=== PATIENT | female | born 1955 | race Hispanic/Latino ===

== ENCOUNTER 2016-11-26 22:50 | Emergency (ER) | payer OTHER ==
[~2016-11-26] VITALS: Ht 157.5 cm; Wt 89.5 kg
[~2016-11-26 22:50] MED LIST: METF500T4 PO; NAPR375T2 PO; SIMV10TA4 PO
[2016-11-26 22:53] VITALS: BP 137/88; PULSE 89; RESP 18; O2SAT 97
--- NOTE | 2016-11-26 23:07 | ED.REPORT ---
HPI-Hip/Pelvis Prob/Inj Date of Service Nov 26, 2016 ED Provider: Taqueria Lindsay MD A 61 year old female with a history of diabetes and hyperlipidemia presents to the ED complaining of pain in her left hip onset two weeks ago which radiates down her left leg to the top of her left foot. 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 She does not report falling at any point. The pain has gotten progressively worse since onset and is exacerbated by walking but is relieved by sitting or lying down. She reports having never experienced this discomfort before. Associated symptoms include numbness and tingling sensation that travels down entire length of left leg. The patient is not sure if her left leg has been swelling at all. She denies any change in bladder activity, fever, nausea, vomit, dysuria, diaphoresis, recent unexplained weight loss, or rashes. She has seen two doctors for the pain and has been prescribed two medications that offer no relief. She reports no history of back problems and has not had any back imaging done. The patient was dropped off at the ED by her daughter. Nursing Notes Stated Complaint: LEFT LEG AND HIP PAIN Chief Complaint: Extremity Trauma Nursing Notes Reviewed: Yes (fluid Operations, Weathermobs not reconciled) Allergies: Coded Allergies: No Known Allergies (Verified Allergy, Unknown, 11/26/16) Scheduled Amitriptyline (Amitriptyline) 25 Mg Tab 50 MG PO HS Metformin (Metformin) 500 Mg Tablet 500 MG PO DAILYWM Methylprednisolone (Medrol) 21 Tab/Pkg Tablet 1 TAB PO UD Follow package instructions Simvastatin (Simvastatin) 10 Mg Tablet 10 MG PO HS Scheduled PRN Naproxen (Naproxen) 375 Mg Tablet 375 MG PO BID PRN PRN For Pain oxyCODONE-Acetaminophen 5-325 mg (oxyCODONE-Acetaminophen 5-325 mg) 1 Each Tablet 1-2 TAB PO Q6H PRN PRN For Pain General Time Seen by Provider: 23:06 Chief Complaint Hip pain left Hx Obtained From: Patient Arrived By: Walk-in Onset Occurred: More than a week ago... (2 weeks) Context of Onset: Other (normal supervisor machining) Radiation: Radiation present Severity: Current: Moderate Severity: Maximum: Moderate Recent Healthcare: Recent doctor visit Similar Sx Previous: No Past Medical History Past Medical History Notes: Negative cardiac stress test November 2015 Past Medical History Diabetes Obstructive sleep apnea on CPAP Hyperlipidemia Family History Family history of diabetes, no family history of Breast or ovarian cancer, family history of ischemic heart disease and a sister of possible gallbladder Smoking History Former Smoker Social History Alcohol Use: "Social" Ambulatory Status Independent Review of Systems Review of Systems Note: Numbness and tingling sensation that travels down left leg. Reports no change in bladder activity. Constitutional: Denies: Fever, Recent wt loss (Denies recent unexplained weight loss. ) Musculoskeletal: Reports: Extremity pain (Pain in left hip and left leg. ) Skin: Denies Rash Complete sys rev & neg: except as marked. GI: Denies: Nausea, Vomiting Female: Denies: Dysuria Physical Exam Initial Vital Signs Vital Signs (First) Date Time Temp Pulse Resp B/P Pulse Ox O2 Delivery O2 Flow Rate FiO2 11/26/16 22:53 36.7 89 18 137/88 97 Room Air Initial VS: Reviewed, Vital signs normal negative straight leg test. Normal plantar flexion and normal dorsal felxion. No weakness. Can internally and externally rotate inside of leg. No sign of hip or knee pathology. No focal deficit. Cassic horrific sciatica. General/Constitutional: Awake, Alert Uncomftorable. Head / Eyes: Atraumatic, Normocephalic, PERRL, EOMI Neck: Atraumatic, Full range of motion Respiratory / Chest: Atraumatic, Breath sounds NL, Breath sounds = bilat, No respiratory distress, No rales, No rhonchi, No wheezing Cardiovascular: Heart rate NL, Regular rhythm, Heart sounds NL, No gallop, No murmurs, No rubs Abdomen: Atraumatic, No guarding, No rebound Back: Atraumatic, Full range of motion Skin: Atraumatic, Warm, Dry Neurologic Neurologic: Oriented X3, Speech NL, No motor deficits, No sensory deficits Uncomftorable but has normal neurologic exam. ENT: Atraumatic, Mucous membranes moist Upper Extremity / MS: Atraumatic, Full range of motion Wrist / Hand: Atraumatic, Full range of motion Interpretation & Diagnostics Interpretation & Diagnostics: Laboratory testing and emergent imaging not indicated Re-Eval/Medical Decision Med Decision/Clinical Course This is a 61-year-old female developed left-sided sciatic symptoms 2 weeks ago. He has been seen by the PCP twice, started combination of some medicines-but she indicates they are not working and is fairly miserable. She denies any recent trauma, denies fevers chills, denies bowel or bladder dysfunction, denies weakness, just terrible pain radiating down the left hallway to the left leg. There is no specific event. She can internally and externally rotate her hip, which is reports persistent, uncontrolled, unrelenting pain. Denies prior history of back problems. She has no additional complaints. She has had no recent procedures. On exam she is anxious and uncomfortable. However she has no gross focal deficits. She has no clinical signs or fracture dislocation left hip, she has no focal motor deficits the left lower extremity although describes classic left -sided sciatica. She received an IM dose of Dilaudid with improvement. A trial course of steroids is being added patient received a dose of dexamethasone in the department and a prescription for Medrol Dosepak at home.,The patient reported no relief with hydrocodone and no effect of cyclobenzaprine - so these are being discontinued. She was Advised to continue the gabapentin and bedtime amitriptyline and will be trialed at a dose of 50 mg daily at bedtime. The patient is to keep the plan for follow-up with physical therapy. I spent physical time with the patient discussing sciatica and its management-and at this point there are no findings of a need for emergent imaging, need for follow -up, as his symptoms are not improving with time MRI imaging would indeed be warranted. Teen, and discharge instructions were reviewed with the patient. She is discharged in improved condition. Source of Hx: Old records Re-Evaluation/Progress : Time of Eval: 00:47 Re-Evaluation/Progress Note: Rechecked patient. Her condition is improved. Explained test results, diagnosis, and plan for discharge. Patient understands and agrees with the plan. All questions addressed. Differential Diagnosis: Negative: Arterial occlus/ischemia, Arthritis, gouty, Arthritis, pseudogout, Arthritis, septic, Avascular nec, fem head, Compartment syndrome, Deep vein thrombosis, Dislocation hip, anterior, Dislocation hip, posterio, Fx acetabulum, Laceration, Neurovascular injury, Open fracture, Osteomyelitis Counseled Regarding: Diagnosis, Lab results, Need for follow-up, When/why to return to ED Discharge & Departure Impression: Primary Impression: Sciatica Laterality: left Qualified Code: M54.32 - Sciatica, left side Disposition: Home Discharge Condition All VS Reviewed: Yes Condition: Improved Additional Instructions: 1. Your symptoms and exam are suggestive of sciatica. Something is irritating the left sciatic nerve, which is generally quite miserable. 2. In the majority of cases his symptoms do resolve with time-although the recovery time can vary considerably. 3. Imaging with an MRI would generally be arranged by her primary care physician, and is usually done if symptoms are not resolving after 4-6 weeks. 4. Stop the cyclobenzaprine and hydrocodone which indicated not been helping. 5. I recommend continuing the gabapentin. 6. Add the medication Amitriptyline 50 mg at bedtime. 7. I recommend a trial of steroids which often help. Take a tapered prescription of the "Medrol Dosepak" as prescribed 8. If absolutely needed for severe pain, if you can take oxycodone/APAP 05/325 one to 2 tabs up to every 4-6 hours. Note this is another narcotic, but may help more than the hydrocodone which indicated was not helping. Like the hydrocodone, he wanted to use this only if needed for severe, uncontrolled pain. Medicine does cause dizziness and drowsiness. No driving for at least 4- 6 hours. He can also cause constipation and he should take a stool softener. Take it. 9. Continue with the plans to pursue physical therapy which can be helpful. 10. Turn again if no worsening symptoms-if fever, bowel or bladder dysfunction develops, or new weakness occurs. Referrals: Marian Christy MD (PCP) Heidy Attestation Portions of this note were transcribed by Blaze Santos. I, Dr. Lindsay personally performed the history, physical exam and medical decision-making; I reviewed and confirmed the accuracy of the information in the transcribed note. Signed by: Heidy Rios, 11/27/2016and 0212. copies to: Marian Christy MD, Matthew F MD Nov 26, 2016 23:07 Blaze Santos Nov 26, 2016 23:26
[2016-11-26] MEDS ORDERED: Ondansetron 8 mg ODT Tablet PO ONE (23:30)
[2016-11-26] MEDS ORDERED: HYDROmorphone 1 mg/mL Inj IM ONE (23:30)
[2016-11-27] MEDS ORDERED: _oxyCODONE/APAP 5-325 mg Tablet PO PRN (00:05)
[2016-11-27] MEDS ORDERED: MTH4T PO (00:08)
[2016-11-27] MEDS ORDERED: OXYC1TAB24 PO (00:08)
[2016-11-27] MEDS ORDERED: AMT25T PO (00:08)
[2016-11-27 01:29] VITALS: BP 117/56; PULSE 80; RESP 16; O2SAT 94
== END 2016-11-27 01:15 | disposition home or self-care (01) ==
LOC: SED 22:50
DX: M54.32 Sciatica, left side (principal); E11.9 Type 2 diabetes mellitus without complications; E78.5 Hyperlipidemia, unspecified; Z87.891 Personal history of nicotine dependence; Z79.84 Long term (current) use of oral hypoglycemic drugs
CPT/HCPCS: 96372; 99283; J1170